=== PATIENT | female | born 1960 | race Two or more races ===

== ENCOUNTER → 2017-01-17 | Outpatient (CLI) | payer OTHER ==
[~2017-01-17] MED LIST: CIPRO PO; IBUPROFEN800 MG PO; KEFLEX500 M1 PO
--- NOTE | ~2017-01-17 | CR58 ---
[facility] A Service of [facility] & [facility] RADIOLOGY TEXT RESULTS PATIENT: ANUJ CALHOUN LOCATION: [facility] : 62 UNIT #: [id number] AGE: [address]: Felicitas Avelar APRN SEX: F ORDER DR: [id number] [facility] [address] [place], [place] [address] [id number] O MR#: [id number] Acc #: [id number] NAME: ANUJ CALHOUN : 1960 SEX: F STUDY DATE/TIME: 01/17/2017 12:11 UNIT: [facility] ROOM: STUDY DESCRIPTION: CR Cervical Spine 2 or 3 Views Attending Physician: Felicitas Avelar A.P.R.N. Referring Physician: Felicitas Avelar A.P.R.N. Ordering Physician: Felicitas Avelar A.P.R.N. Primary Care Physician: Felicitas Avelar A.P.R.N. MEDICAL IMAGING REPORT This report is preliminary unless electronic signature is present EXAM 3 views of the cervical spine INDICATION Pain with movement in the cervical spine. This has been present for 15 days. FINDINGS No acute fracture or subluxation of the cervical spine is identified. Patient does have some degenerative change. This is probably most pronounced at C3-C4 and C5-C6. There is some retrolisthesis of C3 on C4, C4 on C5 and C6 on C7. There is no prevertebral soft tissue swelling. No aggressive osseous abnormalities are seen. IMPRESSION Degenerative changes as noted above. Dictated by... Kelly Blackwell M.D. THIS IS AN ELECTRONICALLY VERIFIED REPORT Kelly Blackwell M.D. at 01/18/2017 5:01 PM HOLLAND/diego TD: 01/18/2017 15:02 JOB #: [id number] MEDICAL IMAGING REPORT Page 1 of 1 COPY
--- NOTE | ~2017-01-17 | CR221 ---
[facility] A Service of [facility] & [facility] RADIOLOGY TEXT RESULTS PATIENT: ANUJ CALHOUN LOCATION: [facility] : 62 UNIT #: [id number] AGE: [address]: Felicitas Avelar APRN SEX: F ORDER DR: [id number] [facility] [address]. [place], [place] [address] [id number] O MR#: [id number] Acc #: [id number] NAME: ANUJ CALHOUN : 1960 SEX: F STUDY DATE/TIME: 01/17/2017 12:15 UNIT: [facility] ROOM: STUDY DESCRIPTION: CR Scapula Comp Rt Attending Physician: Felicitas Avelar A.P.R.N. Referring Physician: Felicitas Avelar A.P.R.N. Ordering Physician: Felicitas Avelar A.P.R.N. Primary Care Physician: Felicitas Avelar A.P.R.N. MEDICAL IMAGING REPORT This report is preliminary unless electronic signature is present EXAM Right scapula. HISTORY Upper back pain, scapular pain for 15 days. No known injury. COMPARISON AP and lateral views of the scapula were obtained. FINDINGS On the lateral view, the bottom part of the scapula is excluded. No fracture is visible. IMPRESSION No scapula fracture or abnormality is identified. Dictated by... Jose Brown M.D. THIS IS AN ELECTRONICALLY VERIFIED REPORT Jose Brown M.D. at 01/18/2017 1:48 PM MIKEY/mary TD: 01/18/2017 11:06 JOB #: [id number] MEDICAL IMAGING REPORT Page 1 of 1 COPY
--- NOTE | ~2017-01-17 | CR63 ---
[facility] A Service [facility] RADIOLOGY TEXT RESULTS PATIENT: ANUJ CALHOUN LOCATION: [facility] : 62 UNIT #: [id number] AGE: [address]: Felicitas Avelar APRN SEX: F ORDER DR: [id number] [facility] [address]. [place], [place] [address] [id number] O MR#: [id number] Acc #: [id number] NAME: ANUJ CALHOUN : 1960 SEX: F STUDY DATE/TIME: 01/17/2017 12:04 UNIT: [facility] ROOM: STUDY DESCRIPTION: CR Chest 2 View Attending Physician: Felicitas Avelar A.P.R.N. Referring Physician: Felicitas Avelar A.P.R.N. Ordering Physician: Felicitas Avelar A.P.R.N. Primary Care Physician: Felicitas Avelar A.P.R.N. MEDICAL IMAGING REPORT This report is preliminary unless electronic signature is present EXAM Chest HISTORY Cough for the past 15 days. TECHNIQUE Frontal and lateral views of the chest. COMPARISON None. FINDINGS Cardiomegaly. Mild widening of the mediastinal contour. Lungs are clear. No pleural fluid or pneumothorax. IMPRESSION Cardiomegaly. Widening of the mediastinal contour, nonspecific. Correlate for any suspicion for aneurysm or aortic injury. If further evaluation is desired clinically, a CT or CTA of the chest may be helpful. Dictated by... Josh Neff M.D. THIS IS AN ELECTRONICALLY VERIFIED REPORT Josh Neff M.D. at 01/18/2017 12:12 PM EED/lacey TD: 01/18/2017 05:07 JOB #: [id number] [facility] A Service [facility] RADIOLOGY TEXT RESULTS PATIENT: MORDOCHE COLLEEN,ANUJ LOCATION: [facility] : 62 UNIT #: [id number] AGE: [address]: Felicitas Avelar APRN SEX: F ORDER DR: MEDICAL IMAGING REPORT Page 1 of 1 COPY
== END | disposition home or self-care (01) ==
LOC: CRAD 11:23
DX: S49.91XA Unspecified injury of right shoulder and upper arm, initial encounter (principal); R05 Cough; M54.2 Cervicalgia; I51.7 Cardiomegaly; M47.892 Other spondylosis, cervical region
CPT/HCPCS: 71020; 72040; 73010